=== PATIENT | female | born 1990 | race Caucasian/White ===

== ENCOUNTER 2024-09-25 14:13 | Outpatient (RCR) | payer OTHER, SELFPAY ==
--- NOTE | 2024-08-30 09:19 | MHC.PT.EP ---
[facility] [place] Office [place] [facility] [place] Office [address] [place] Carrillo [address] [phone] F: [phone] F: [phone] F: [phone] F: [phone] Physical Therapy Plan of Care Date of Evaluation: 08/30/24 Date of Surgery: NA Diagnosis: CIDP- walking and balance Assessment: Jo is a 33 year old female who is referred to PT for CIDP- walking and balance issues . She reports of being diagnosed with GBS and was acute setting for 4 months. She was in [place] at this time. She then had outpatient PT for 1 month only due to insurance limitations. She moved to [place] about 1 year back and would like to resume rehab. On PT examination she presents with constant pain for about 6/10 pain in B feet and radiating to R knee, B LE gross ROM WNL, decreased strength in B LE and core, impaired gait, and impaired balance. She lives with her best friend. She has days with increased pain and weakness resulting in using wheel chair to move around and needing more assistance with ADLS and has days when she walks independently and is independent with ADLS. 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 She would benefit from skilled PT to address the aforementioned impairments and improve tolerance to functional activities. Frequency and Duration: The patient will be seen 2/week for 6 weeks Short Term Goals: 1. Pt will demonstrate initiation of HEP in 2 weeks 2. Pt will demonstrate an increase in muscle strength by 1grade in B LE which will enable her to negotiate stairs and walk without needing to use wheel chair on her bad days in 4 weeks Halfway Goals: 1. Pt will demonstrate no LOB on uneven surfaces in 6 weeks 2. Pt will be independent with all HEP for symptom management and maintenance following d/c in 6 weeks Treatment Plan: Modalities to reduce pain, spasms and effusion. Manual therapy to restore motion and function. Therapeutic exercise to improve strength and flexibility. Neuromuscular re-education for posture and balance. Therapeutic activities to return to functional activities of daily living. Electronically signed by: Candida Oquendo PT DPT Please sign and return to therapist. Thank you for your referral.
--- NOTE | 2024-10-09 13:28 | MHC.PT.DC ---
[facility] [place] Office [place] Office [place] Office [address] [phone] F: [phone] F: [phone] F: [phone] F: [phone] Physical Therapy Discharge Report Diagnosis: CIDP- walking and balance Date of Surgery: NA Date of Evaluation: 08/30/24 Date of Discharge: 10/09/24 Treatments to Date: 8 Cancellations to Date: 0 No Shows to Date: 0 Discharge Status: Achieved Goals Improved Function Independent with HEP Discharge Summary: Jo arrived stating she is feeling good. She has completed 8 PT visits and has had no episodes of LOB. She has not needed to use her AD as well in a month. She is independent with all HEP as well. She is therefore being d/c from PT. Jo was in agreement with the plan. I reviewed all exercises with her. Electronically signed by: Candida Oquendo PT DPT Please sign and return to therapist. Thank you for your referral.
== END 2024-10-09 13:28 | disposition home or self-care (01) ==
LOC: HO.PT 14:13
PROVIDERS: PCP Family Medicine; Visit Provider Psychiatry & Neurology Neurology
DX: G61.81 Chronic inflammatory demyelinating polyneuritis (principal)
CPT/HCPCS: 97110; 97162; 97530

== ENCOUNTER 2025-02-07 08:26 | Outpatient (AMB) | payer OTHER, SELFPAY ==
--- OUTSIDE RECORDS SUMMARY | 2025-02-07 08:38 | XMS_ITS | Clinical Summary ---
Author Organization [address] Address [address] [place] [id number] Phone Care Team Providers Care Reed Repairer Name Role Phone Yudi Rosa MD Primary Care Pr ovider Allergies Active Allergy Reactions Criticality Noted Date Comments Cat Dander Other Low 12/22/2018 Other reaction(s): watery eyes Ceftriaxone Hives,Swelling Medium 12/30/2022 Dog Epithelium Allergenic Extract Other Low 12/22/2018 Other reaction(s): watery eyes Iodine Anaphylaxis,Hives,It stephany,Shortness of breath,Swelling,Whee zing High 06/07/2023 Other reaction(s): sob Other Other Low 04/25/2019 Shellfish Derived Swelling High 12/22/2018 Medications albuterol sulfate (ProAir RespiClick) 90 mcg/actuation aerosol powdr breath activatedIndicat ions:Mild intermittent asthma without complication Inhale 2 puffs by mouth every 6 (six) hours if needed (wheezing). Inhale 2 Puffs into the lungs every 6 hours as needed.Inhale 2 Puffs into the lungs every 6 hours as needed. 1 each 5 03/19/20 25 Active DULoxetine (CYMBALTA) [address] Jessica ns:Chronic pain syndrome,History of Guillain-Creighton syndrome Take 1 capsule (30 mg total) by mouth 2 (two) times a day. Do not crush or chew. 180 each 5 03/19/20 25 Active EPINEPHrine (EpiPen 2-Pancho) 0.3 mg/0.3 mL injectionIndicat ions:Multiple drug allergies Inject 0.3 mL (0.3 mg total) into the thigh 1 (one) time for 1 dose. 1 each 5 Active fluticasone furoate (Arnuity Ellipta) 100 mcg/actuation blister with device inhalerIndicatio ns:Mild intermittent asthma without complication Inhale 1 puff by mouth 1 (one) time each day. Inhale 1 Puff into the lungs daily. 1 each 5 Active propranoloL (INDERAL) 10 mg tabletIndication s:Generalized anxiety disorder Take 1 tablet (10 mg total) by mouth 2 (two) times a day if needed (anxiety). TAKE 1 TABLET BY MOUTH 2 TIMES DAILY NEEDED (ANXIETY) FOR UP TO 360 DAYS. 180 tablet 1 5 Active Additional Information Patient not taking.Reported on 01/23/2025 SUMAtriptan (IMITREX) 50 mg tabletIndication s:Migraine without aura and without status migrainosus, not intractable Take 1 tablet (50 mg total) by mouth 1 (one) time if needed for migraine. May repeat dose once in 2 hours if no relief. Do not exceed 2 doses in 24 hours. 10 tablet 1 5 Active gabapentin (NEURONTIN) 800 mg tabletIndication s:History of Guillain-Creighton syndrome Take 1 tablet (800 mg total) by mouth 2 (two) times a day. 5 Active predniSONE (DELTASONE) 20 mg tabletIndication s:History of Guillain-Creighton syndrome Take 1 tablet (20 mg total) by mouth 1 (one) time each day. 5 Active escitalopram (LEXAPRO) 20 mg tabletIndication s:Generalized anxiety disorder,Mild depression Take 1 tablet (20 mg total) by mouth 1 (one) time each day. 90 each 1 5 03/19/20 25 Active montelukast (SINGULAIR) 10 mg tabletIndication s:Allergic rhinitis, unspecified seasonality, unspecified trigger Take 1 tablet (10 mg total) by mouth at bedtime. 90 each 1 5 03/19/20 25 Active diphenhydrAMINE (BENADRYL) 50 mg tabletIndication s:Allergic rhinitis, unspecified seasonality, unspecified trigger Take 1 tablet (50 mg total) by mouth at bedtime as needed for itching. 30 tablet 5 Active magnesium oxide 250 mg magnesium tablet TAKE 1 TABLET BY MOUTH EVERY DAY 90 tablet 1 5 Active omeprazole (PriLOSEC) [address] capsule Take 1 capsule (20 mg total) by mouth 1 (one) time each day. Do not crush or chew. 90 each 5 04/30/20 25 Active Active Problems Problem Noted Date Diagnosed Date Mild depression 2024 Assessment & Plan (2024 9:50 AM EST): Start Lexapro 20 mg daily Orders: escitalopram (LEXAPRO) 20 mg tablet; Take 1 tablet (20 mg total) by mouth 1 (one) time each day. Multiple drug allergies 2024 Assessment & Plan (2024 9:50 AM EST): Use EpiPen as needed for anaphylaxis Orders: EPINEPHrine (EpiPen 2-Pancho) 0.3 mg/0.3 mL injection; Inject 0.3 mL (0.3 mg total) into the thigh 1 (one) time for 1 dose. History of Guillain-Creighton syndrome 2024 Assessment & Plan (2024 9:50 AM EST): Continue duloxetine and gabapentin 800 mg twice daily. Also prescribed prednisone 20 mg daily by her neurologist-Dr. Sher Orders: DULoxetine (CYMBALTA) [address] capsule; Take 1 capsule (30 mg total) by mouth 2 (two) times a day. Do not crush or chew. Hypomagnesemia 2024 Assessment & Plan (2024 9:50 AM EST): Continue magnesium 300 mg daily B12 deficiency 2024 Assessment & Plan (2024 9:50 AM EST): Continue daily multivitamin. Will update B12 level Orders: Vitamin B12; Future Cholelithiases 03/30/2024 Chronic pain syndrome 03/15/2024 Assessment & Plan (2024 9:50 AM EST): Continue duloxetine and gabapentin 800 mg twice daily. Also prescribed prednisone 20 mg daily by her neurologist-Dr. Sher Orders: DULoxetine (CYMBALTA) [address] capsule; Take 1 capsule (30 mg total) by mouth 2 (two) times a day. Do not crush or chew. Migraine without aura and wi thout status migrainosus, not intractable 03/15/2024 Assessment & Plan (2024 9:50 AM EST): Continue sumatriptan and Toradol as needed Orders: SUMAtriptan (IMITREX) 50 mg tablet; Take 1 tablet (50 mg total) by mouth 1 (one) time if needed for migraine. May repeat dose once in 2 hours if no relief. Do not exceed 2 doses in 24 hours. Mild intermittent asthma without complication Assessment & Plan (2024 9:50 AM EST): Advised to use the Arnuity daily for maintenance and to use albuterol as needed Orders: albuterol sulfate (ProAir RespiClick) 90 mcg/actuation aerosol powdr breath activated; Inhale 2 puffs by mouth every 6 (six) hours if needed (wheezing). Inhale 2 Puffs into the lungs every 6 hours as needed.Inhale 2 Puffs into the lungs every 6 hours as needed. fluticasone furoate (Arnuity Ellipta) 100 mcg/actuation blister with device inhaler; Inhale 1 puff by mouth 1 (one) time each day. Inhale 1 Puff into the lungs daily. Impaired gait and mobility 03/15/2024 Fatty liver disease, nonalcoholic 03/15/2024 Esophageal stricture 03/15/2024 Assessment & Plan (2024 9:50 AM EST): See HPI. Referred to GI Orders: Ambulatory referral to Gastroenterology; Future Generalized anxiety disorder 07/10/2022 Assessment & Plan (2024 9:50 AM EST): Will increase Lexapro to 20 mg daily for better control of mood symptoms Orders: propranoloL (INDERAL) 10 mg tablet; Take 1 tablet (10 mg total) by mouth 2 (two) times a day if needed (anxiety). TAKE 1 TABLET BY MOUTH 2 TIMES DAILY NEEDED (ANXIETY) FOR UP TO 360 DAYS. escitalopram (LEXAPRO) 20 mg tablet; Take 1 tablet (20 mg total) by mouth 1 (one) time each day. Allergic rhinitis 12/22/2018 Assessment & Plan (2024 9:50 AM EST): Continue current meds Orders: montelukast (SINGULAIR) 10 mg tablet; Take 1 tablet (10 mg total) by mouth at bedtime. diphenhydrAMINE (BENADRYL) 50 mg tablet; Take 1 tablet (50 mg total) by mouth at bedtime as needed for itching. Attention deficit hyperactivity disorder (ADHD) 07/01/2006 Encounters Date Type Department Care Team Description 01/30/2025 2:54 PM EDT Anesthesia Event [facility] Endoscopy [address] [place] [phone] Olivia Major MD 01/30/2025 12:54 PM EDT - 01/30/2025 11:59 PM EDT Hospital Encounter [facility] Endoscopy [address] [place] [address] Roberto Mclain MD Freeman, Katharine O, MD Hayes, Brett L, CRNA Dysphagia Discharge Disposition: Home or Self Care 12/14/2024 8:30 AM EDT - 12/14/2024 11:59 PM EDT Hospital Encounter [facility] Xray [address] [place] [address] Esophageal stricture; Dysphagia, unspecified type; H/O Guillain-Creighton syndrome; CIDP (chronic inflammatory demyelinating polyneuropathy) (CMS/[facility] V24, CMS/[facility] V28) Discharge Disposition: Home or Self Care 11/16/2024 Telephone Adult [address] [phone] Yudi Rosa MD Forms/questionnaires from Last 3 Months Immunizations Name Administration Dates Next Due Influenza Quadrivalent, 0.5m l, preservative free (Fluarix; FluLaval; Fluzone) ages 6mo and older (Afluria) 3yo and older 05/30/2019 Influenza trivalent, 0.5mL, preservative free (Fluarix; FluLaval; Fluzone) ages 6mo and older (Afluria) 3 years and older 07/01/2006 Td Tetanus diptheria (Tdvax) 7yo and older 04/16 Tdap Tetanus diptheria acell ular pertussis (Boostrix; Adacel) 7yo and older 2024 Surgical History Surgery Date Site/Laterality Comments OTHER SURGICAL HISTORY 2021 PROCEDURE: SURGICAL OPENING OF ESOPHAGUS BARIATRIC SURGERY 12/2021 PROCEDURE: [place] LAPS GSTRC RSTRICTIV PX LONGITUDINAL GASTRECTOMY OTHER SURGICAL HISTORY 03/2022 PROCEDURE: [place] INJECTION EPIDURAL BLOOD/CLOT PATCH; COMMENT: spinal Medical History Medical History Date Comments Varicella without mention of complication DX:Varicella without mention of complication Hearing loss 07/01/2006 DX:Hearing loss; COMMENT: IMO update Adhd CRISPIN (generalized anxiety disorder) Chronic pain syndrome Migraines Asthma Depression Fatty liver Esophageal stricture Cholelithiasis Guillain Barraza syndrome (CMS/HCC V24) Vitamin B 12 deficiency Hypomagnesemia Family History Medical History Relation Name Comments Cervical cancer Mother late 30s Breast cancer Other Colon cancer Neg Hx Ovarian cancer Neg Hx Relation Name Status Comments Father Alive Mother Alive Other maternal great grandmother Social History Tobacco Use Types Packs/Day Years Used Date Smoking Tobacco: Never Smokeless Tobacco: Never Tobacco Cessation:Counseling Given: Not Answered Alcohol Use Standard Drinks/Week Comments Not Currently 0 (1 standard drink = 0.6 oz pur e alcohol) Housing Instability Answer Date Recorde d Are you worried that in the next 2 months you may not have stable housing? No 09/19/2024 Food Access & Nutrition Answer Date Rec orded Do you have access to a vari ety of food including fruits and vegetables? Yes 09/19/2024 Health Literacy Answer Date Recorded How often do you need to hav e someone help you when you read instructions, pamphlets, or other written material from your doctor or pharmacy? Always 09/19/2024 Caregiver: How often do you need to have someone help you when you read instructions, pamphlets, or other written material from your doctor or pharmacy? Not on file 09/19/2024 Financial Risk Answer Date Recorded How hard is it for you to pa y for the very basics like food, housing, medical care, and air conditioning / heating? Not asked 09/19/2024 Transportation Answer Date Recorded Has the lack of transportati on kept you from meetings, work, or from getting things needed for daily living? No Has the lack of transportati on kept you from medical appointments or from getting medications? No 09/19/2024 Social Isolation Answer Date Recorded How often do you feel lonely or isolated from th ose around you? Never 09/19/2024 Food Risk Answer Date Recorded Within the past 12 months we worried whether our food would run out before we got money to buy more. Not asked 09/19/2024 Within the past 12 months th e food we bought just didn't last and we didn't have money to get more. Not asked 09/19/2024 Dependent Care Answer Date Recorded Do you need help finding or paying for care for your loved ones. For example, children's lunchroom supervisor or elderly care for an older adult? No 09/19/2024 Education Answer Date Recorded Do you think completing more education or training, like finishing a GED, going to college, or learning a trade, would be helpful for you? Yes 09/19/2024 Employment and Income Answer Date Recor ded During the last four weeks, have you been actively looking for work? Yes 09/19/2024 Living Situation Answer Date Recorded What is your living situation? 0 09/19/2024 Interpersonal Safety Answer Date Record ed Physical Abuse 01/30/2025 Verbal Abuse 01/30/2025 Comments No Sex and Gender Information Value Date Recorded Sex Assigned at Female 10/19/2024 3:06 PM EDT Legal Sex Female 11:41 AM EDT Gender Identity Female 10/19/2024 3:06 PM EDT Sexual Orientation Lesbian or Davis 10/19/2024 3: 06 PM EDT Obstetrics History Last Filed Vital Signs Vital Sign Reading Time Taken Comments Blood Pressure 107/82 01/30/2025 3:29 PM EDT Pulse 77 01/30/2025 3:29 PM EDT Temperature 36.3 C (97.3 F) 01/30/2025 2:41 PM EDT Respiratory Rate 20 01/30/2025 3:29 PM EDT Oxygen Saturation 99% 01/30/2025 3:29 PM EDT Inhaled Oxygen Concentration - - Weight 61.7 kg (136 lb) 01/30/2025 2:41 PM EDT Height 162.6 cm (5' 4 ) 01/30/2025 2:41 PM EDT Body Mass Index 23.34 01/30/2025 2:41 PM EDT Plan of Treatment Upcoming Encounters Date Type Department Care Team (Late st Contact Info) Description 03/27/2025 10:00 AM EDT Office Visit Adult Medicine [address] [phone] Amparo Adhikari PA [address] [place] [address] Health Maintenance Due Date Last Done Comments Pneumococcal Vaccine: Pediatrics (0 to 5 Years) and At-Risk Patients (6 to 49 Years) (1 of 2 - PCV) 2010 Cervical Cancer Screening: Pap Smear 2012 HIV Screening 05/11/2024 Hepatitis C Screening 05/11/2024 Depression Screening 09/19/2025 09/19/2024, 03/15/2024 Social Influencers of Health Screening 09/19/2025 09/19/2024 Cholesterol Screening (Lipid Panel) 03/30/2029 03/30/2024, 03/30/2024 DTaP,Tdap,and Td Vaccines (3 - Td or Tdap) 2034 2024, 04/16/2005 Influenza Vaccine Discontinued 05/30/2019, 07/01/2006 COVID-19 Vaccine Discontinued HIB Vaccines Aged Out No longer eligi ble based on patient's age to complete this topic HPV Vaccines Aged Out No longer eligi ble based on patient's age to complete this topic Hepatitis A Vaccines Discontinued Hepatitis B Vaccines Discontinued IPV Vaccines Aged Out No longer eligi ble based on patient's age to complete this topic MMR Vaccines Aged Out No longer eligi ble based on patient's age to complete this topic Meningococcal ACWY Vaccine Aged Out N o longer eligible based on patient's age to complete this topic Meningococcal B Vaccine Aged Out No l onger eligible based on patient's age to complete this topic RSV Immunization Patients Under 20 months Aged Out No longer eligible based on patient's age to complete this topic Varicella Vaccines Aged Out No longer eligible based on patient's age to complete this topic Procedures Procedure Name Priority Date/Time Associated Diagnosis Comments EGD Routine 01/30/2025 3:07 PM EDT Dysphagia XR ESOPHAGRAM STAT 12/14/2024 9:01 AM EDT Esophageal stricture Dysphagia, unspecified type H/O Guillain-Creighton syndrome CIDP (chronic inflammatory demyelinating polyneuropathy) ([facility] V24, [facility] V28) LIPID PANEL Routine 03/30/2024 HM DEPRESSION SCREENING Routine 03/15/2024 from Last 3 Months or Most Recently Relevant to Health Maintenance Results * EGD Dilation; Anesthesia - MAC; [facility] ENDOSCOPY (01/30/2025 3:07 PM EDT) Anatomical Region Laterality Modality Endoscopy 01/30/2025 2:56 PM EDT Impressions 01/30/2025 3:10 PM EDT - Normal examined duodenum. - A sleeve gastrectomy was found, characterized by healthy appearing mucosa. - GERD, as evident by free flow of gastric contents into the esophagus. - No specimens collected. Recommendation: - Discharge patient to home. - Use a proton pump inhibitor PO daily for 2 months. - Perform a video esophagram if symptoms persist. Narrative 01/30/2025 3:10 PM EDT [facility] GI Patient Name: Megan Norris Procedure Date: 01/30/2025 2:56 PM Date of : 1990 Age: 34 Gender: Female Note Status: Finalized Attending MD: Roberto Mclain MD, Procedure Date No Time: 01/30/2025 Procedure: Upper GI endoscopy Indications: Dysphagia Providers: Roberto Mclain MD Referring MD: Roberto Mclain MD Medicines: Monitored Anesthesia Care Complications: No immediate complications. Estimated blood loss: None. Estimated Blood Loss: Estimated blood loss: none. Procedure: Pre-Anesthesia Assessment: - Prior to the procedure, a History and Physical was performed, and patient medications and allergies were reviewed. The patient is competent. The risks and benefits of the procedure and the sedation options and risks were discussed with the patient. All questions were answered and informed consent was obtained. Patient identification and proposed procedure were verified by the physician, the nurse, the respiratory technician and the dental lab technician in the pre-procedure area in the endoscopy suite. Mental Status Examination: alert and oriented. Airway Examination: normal oropharyngeal airway and neck mobility. Respiratory Examination: clear to auscultation. CV Examination: normal. Prophylactic Antibiotics: The patient does not require prophylactic antibiotics. Prior Anticoagulants: The patient has taken no anticoagulant or antiplatelet agents. ASA Grade Assessment: II - A patient with mild systemic disease. After reviewing the risks and benefits, the patient was deemed in satisfactory condition to undergo the procedure. The anesthesia plan was to use monitored anesthesia care (MAC). Immediately prior to administration of medications, the patient was re-assessed for adequacy to receive sedatives. The heart rate, respiratory rate, oxygen saturations, blood pressure, adequacy of pulmonary ventilation, and response to care were monitored throughout the procedure. The physical status of the patient was re-assessed after the procedure. After obtaining informed consent, the endoscope was passed under direct vision. Throughout the procedure, the patient's blood pressure, pulse, and oxygen saturations were monitored continuously. The Endoscope was introduced through the mouth, and advanced to the second part of duodenum. The upper GI endoscopy was accomplished without difficulty. The patient tolerated the procedure well. Findings: The examined duodenum was normal. Evidence of a sleeve gastrectomy was found in the stomach. This was characterized by healthy appearing mucosa. There is no endoscopic evidence of bleeding, esophagitis, stenosis or stricture in the entire esophagus. A guidewire was placed and the scope was withdrawn. Dilation was performed with a Savary dilator with mild resistance at 60 Fr. Gastroesophageal reflux is evident by free flow of gastric contents in the lower third of the esophagus. No other significant abnormalities were identified in a careful examination of the esophagus. Procedure Code(s): --- Professional --- 14341, Esophagogastroduodenoscopy, flexible, transoral; with insertion of guide wire followed by passage of dilator(s) through esophagus over guide wire Diagnosis Code(s): --- Professional --- Z98.84, Bariatric surgery status R13.10, Dysphagia, unspecified K21.9, Gastro-esophageal reflux disease without esophagitis CPT copyright 2020 [employer]. All rights reserved. The codes documented in this report are preliminary and upon u.s. commissioner review may be revised to meet current compliance requirements. Roberto Mclain MD 01/30/2025 3:10:18 PM This report has been signed electronically.Roberto Mclain MD Number of Addenda: 0 Note Initiated On: 01/30/2025 2:56 PM Scope In: Scope Out: Endoscopy Department at [facility] - [address] [place] [id number] Procedure Note Roberto Mclain MD - 01/30/2025 [facility] GI Patient Name: Megan Norris Procedure Date: 01/30/2025 2:56 PM Date of : 1990 Age: 34 Gender: Female Note Status: Finalized Attending MD: Roberto Mclain MD, Procedure Date No Time: 01/30/2025 Procedure: Upper GI endoscopy Indications: Dysphagia Providers: Roberto Mclain MD Referring MD: Roberto Mclain MD Medicines: Monitored Anesthesia Care Complications: No immediate complications. Estimated blood loss:None. Estimated Blood Loss: Estimated blood loss: none. Procedure: Pre-Anesthesia Assessment: - Prior to the procedure, a History and Physicalwas performed, and patient medications and allergieswere reviewed. The patient is competent. The risks and benefits of the procedure and the sedation optionsand risks were discussed with the patient. Allquestions were answered and informed consent was obtained. Patient identification and proposed procedure were verified by the physician, the nurse, theanesthetist and the dental lab technician in the pre-procedure area in the endoscopy suite. Mental Status Examination: alertand oriented. Airway Examination: normal oropharyngeal airway and neck mobility. Respiratory Examination: clear to auscultation. CV Examination: normal. Prophylactic Antibiotics: The patient does notrequire prophylactic antibiotics. Prior Anticoagulants: The patient has taken no anticoagulant or antiplatelet agents. ASA Grade Assessment: II - A patient withmild systemic disease. After reviewing the risks and benefits, the patient was deemed in satisfactory condition to undergo the procedure. The anesthesia plan was to use monitored anesthesia care (MAC). Immediately prior to administration of medications, the patient was re-assessed for adequacy to receive sedatives. The heart rate, respiratory rate, oxygen saturations, blood pressure, adequacy of pulmonary ventilation, and response to care were monitored throughout the procedure. The physical status ofthe patient was re-assessed after the procedure. After obtaining informed consent, the endoscope was passed under direct vision. Throughout theprocedure, the patient's blood pressure, pulse, and oxygen saturations were monitored continuously. TheEndoscope was introduced through the mouth, and advanced tothe second part of duodenum. The upper GI endoscopy was accomplished without difficulty. The patienttolerated the procedure well. Findings: The examined duodenum was normal. Evidence of a sleeve gastrectomy was found in the stomach. This was characterized by healthyappearing mucosa. There is no endoscopic evidence of bleeding, esophagitis, stenosis or stricture in the entire esophagus. A guidewire was placed and the scope was withdrawn. Dilation was performed with a Savary dilator with mild resistance at 60 Fr. Gastroesophageal reflux is evident by free flow of gastric contents in the lower third of theesophagus. No other significant abnormalities were identifiedin a careful examination of the esophagus. Procedure Code(s): --- Professional --- 53687, Esophagogastroduodenoscopy, flexible, transoral; with insertion of guide wire followed by passage of dilator(s) through esophagus over guidewire Diagnosis Code(s): --- Professional --- Z98.84, Bariatric surgery status R13.10, Dysphagia, unspecified K21.9, Gastro-esophageal reflux disease without esophagitis CPT copyright 2020 [employer]. All rights reserved. The codes documented in this report are preliminary and upon u.s. commissioner reviewmay be revised to meet current compliance requirements. Roberto Mclain MD 01/30/2025 3:10:18 PM This report has been signed electronically.Roberto Mclain MD Number of Addenda: 0 Note Initiated On: 01/30/2025 2:56 PM Scope In: Scope Out: Endoscopy Department at [facility] - [address] [place] [id number] IMPRESSION: - Normal examined duodenum. - A sleeve gastrectomy was found, characterized by healthy appearing mucosa. - GERD, as evident by free flow of gastric contents into the esophagus. - No specimens collected. Recommendation: - Discharge patient to home. - Use a proton pump inhibitor PO daily for 2months. - Perform a video esophagram if symptoms persist. us Roberto Mclain MD GI~PROCEDURE ORDERABLES Fin al Result * XR Esophagram (12/14/2024 9:01 AM EDT) Anatomical Region Laterality Modality Head and Neck Radiographic Alison ging 12/14/2024 9:17 AM EDT Impressions 12/14/2024 9:45 AM EDT 1. Feline esophagus. This is a transient phenomenon highly associated with gastroesophageal reflux and does not require follow-up. 2. Small, axial, sliding hiatal hernia without visualized gastroesophageal reflux. -------- FINAL REPORT -------- Dictated By: Lois Downey Dictated Date: 12/14/2024 09:17 ET Assigned Physician: Tolu Edward Reviewed and Electronically Signed By: Tolu Edward Signed Date: 12/14/2024 09:45 ET Workstation ID: [id number] Transcribed By: Self Edit Transcribed Date: 12/14/2024 09:24 ET Resident/PA/MANAGER CARE: Lois Downey Narrative 12/14/2024 9:45 AM EDT FINDINGS: Double contrast esophagram performed. COMPARISON: None HISTORY: Patient is a 34-year-old female with history of complications related to intubation. History of gastric sleeve. Dysphagia. Painter Barrel radiographs: 1 view chest radiograph demonstrates cardiac and mediastinal contours within normal limits. Lungs are clear bilaterally. Costophrenic angles are sharp. Multiple surgical clips are noted to the left upper quadrant, consistent with history of gastric surgery surgery. 1 view lateral soft tissue neck demonstrates no prevertebral soft tissue masses. Airway is widely patent. There is loss of cervical lordosis. Effervescent crystals were administered orally. Thick and thin barium were administered orally under fluoroscopic control. Pharyngoesophagram: Rapid sequence imaging of the hypopharynx during swallowing demonstrates prompt initiation of swallowing. There is normal soft palate elevation and normal epiglottic motion. There is no laryngeal penetration or tita aspiration. There is no residual in the vallecula nor in the piriform sinuses. Thoracic esophagus: Normal distensibility, motility and mucosal pattern without evidence of ulceration, stricture or mass formation. Transiently visualized horizontal ridges along the mid esophagus, consistent with esophageal shiver/feline esophagus. Hiatal hernia: Small, axial, sliding hiatal hernia. Limited visualized portion of the stomach demonstrates history of gastric sleeve. Reflux: Unable to elicit 13mm Barium pill: Swallowed without difficulty. Prompt passage of pill from the esophagus into the stomach. DAP: 289.1 Gycm^2 Procedure Note Tolu Edward MD - 12/14/2024 FINDINGS: Double contrast esophagram performed. COMPARISON: None HISTORY: Patient is a 34-year-old female with history of complicationsrelated to intubation. History of gastric sleeve. Dysphagia. Painter Barrel radiographs: 1 view chest radiograph demonstrates cardiac andmediastinal contours within normal limits. Lungs are clear bilaterally.Costophrenic angles are sharp. Multiple surgical clips are noted to theleft upper quadrant, consistent with history of gastric surgery surgery. 1view lateral soft tissue neck demonstrates no prevertebral soft tissuemasses. Airway is widely patent. There is loss of cervical lordosis. Effervescent crystals were administered orally. Thick and thin barium wereadministered orally under fluoroscopic control. Pharyngoesophagram: Rapid sequence imaging of the hypopharynx duringswallowing demonstrates prompt initiation of swallowing. There is normalsoft palate elevation and normal epiglottic motion. There is no laryngealpenetration or tita aspiration. There is no residual in the vallecula norin the piriform sinuses. Thoracic esophagus: Normal distensibility, motility and mucosal patternwithout evidence of ulceration, stricture or mass formation. Transientlyvisualized horizontal ridges along the mid esophagus, consistent withesophageal shiver/feline esophagus. Hiatal hernia: Small, axial, sliding hiatal hernia. Limited visualizedportion of the stomach demonstrates history of gastric sleeve. Reflux: Unable to elicit 13mm Barium pill: Swallowed without difficulty. Prompt passage of pillfrom the esophagus into the stomach. 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 2. Small, axial, sliding hiatal hernia without visualized gastroesophagealreflux. -------- FINAL REPORT -------- Dictated By: Lois Downey Dictated Date: 12/14/2024 09:17 ET Assigned Physician: Tolu Edward Reviewed and Electronically Signed By: Tolu Edward Signed Date: 12/14/2024 09:45 ET Workstation ID: [id number] Transcribed By: Self Edit Transcribed Date: 12/14/2024 09:24 ET Resident/PA/MANAGER CARE: Lois Downey Ivan GIPSON IMG FLUOROSCOPY PROCEDURES Prisca l Result * Lipid panel (03/30/2024) LDL/HDL Ratio 3 0 - 4 Triglycerides 50 0 - 150 mg/dL Cholesterol 138 0 - 200 mg/dL HDL 56 >=40 mg/dL LDL Cholesterol 72 0 - 100 mg/dL Blood Venous blood specimen / Unknown Result [facility] Historical Provider LAB BLOOD ORDERABLES Prisca l Result * Depression Screening (03/15/2024) Depression Screening Abstracted Historical Provider HEALTH MAINTENANCE Final Result from Last 3 Months or Most Recently Relevant to Health Maintenance Insurance [facility] [place] [address] Care Teams Reed Repairer Relationship Specialty Start Date End Date Yudi Rosa MD [address] [place] [address] [phone] PCP - General Internal Medicine 06/06/24
--- OUTSIDE RECORDS SUMMARY | 2025-02-07 08:38 | XMS_ITS | Clinical Summary ---
Author Organization [facility] Address [address] [place] [address] Care Team Providers Care Supervisor Shuttle Fitting Name Role Phone Unavailable Primary Care Provider Unavailabl e Source Comments PLEASE NOTE, if this patient is a minor, it may be UNLAWFUL to discuss sensitive information that is contained in these records (such as FAMILY PLANNING, MENTAL HEALTH or SUBSTANCE ABUSE) with the minor patient's parent or other person without the patient's specific authorization.[facility] Allergies Active Allergy Reactions Criticality Noted Date Comments Ceftriaxone Hives 05/10/2024 Medications ibuprofen 600 mg tabletIndication s:Caries Take 1 Tablet by mouth 4 (four) times daily as needed for mild pain 20 Tablet 05/10/2024 Active Active Problems No known active problems Social History Tobacco Use Types Packs/Day Years Used Date Smoking Tobacco: Never Assessed Social Connections Answer Date Recorded Connectedness 0 04/18/2024 Financial Resource Strain Answer Date R ecorded Financial Resource Strain 0 2023 Stress Answer Date Recorded Stress 0 03/09/2024 Physical Activity Answer Date Recorded Physical Activity 0 03/09/2024 Food Insecurity Answer Date Recorded Food 0 04/27/2024 Transportation Needs Answer Date Record ed Transportation 0 03/09/2024 Housing Stability Answer Date Recorded Housing 0 03/09/2024 Safety and Environment Answer Date King rded Safety 0 03/09/2024 Utilities Answer Date Recorded Utilities 0 03/09/2024 Employment Answer Date Recorded Stress 0 04/18/2024 Comments Unknown Sex and Gender Information Value Date Recorded Sex Assigned at Not on file Legal Sex Female 1:11 PM PDT Gender Identity Not on file Sexual Orientation Not on file Last Filed Vital Signs Vital Sign Reading Time Taken Comments Blood Pressure 106/72 06/08/2024 12:59 PM EST Pulse 82 06/08/2024 12:59 PM EST Temperature - - Respiratory Rate - - Oxygen Saturation - - Inhaled Oxygen Concentration - - Weight - - Height - - Body Mass Index - - Plan of Treatment Health Maintenance Due Date Last Done Comments Anxiety Screening 1991 HPV Screening 1991 Hepatitis C Screening 1991 Pap + HPV 1991 Tobacco Screening 1991 Imm-DTaP/Tdap/Td (2 - Tdap) 04/17/2005 04/16/2005 HIV Screening 2006 Relationship Safety Screening/Counseling 2006 Imm-Hepatitis B (1 of 3 - 19 + 3-dose series) 2010 Cervical Cancer Screening 2012 Pap Smear 2012 [id number] (2023-) 04/02/2024 Alcohol and Drug Screen 08/02/2024 Depression Annual Screen 08/02/2024 Imm-Influenza (#1) 2025 05/30/2019, 07/01/2006 Dental BW 05/11/2025 05/09/2024 Dental Examination 05/11/2025 05/09/2024 Dental Perio Charting 05/11/2025 05/09/2024 Dental Prophy 05/11/2025 05/09/2024 Hypertension Screening (#1) 06/08/2027 Dental FMX/Pano 05/12/2029 05/10/2024, 05/09/2024 Cervical Ablation/Cold-Knife Conization Discontinued Cervical Cryotherapy Discontinued Colposcopy Discontinued Endometrial Biopsy Discontinued Excision/Leep Discontinued HPV Genotyping Discontinued Vaginal Pap Discontinued Vulvoscopy Discontinued Procedures Procedure Name Priority Date/Time Associated Diagnosis Comments PANORAMIC RADIOGRAPHIC IMAGE Routine 05/10/2024 3:00 PM EDT Caries Retained tooth root INTRAORAL - COMP SERIES OF RADIOGRAPHIC IMAGES Routine 05/09/2024 2:20 PM EDT Retained tooth root Caries of enamel (incipient) Defective dental latter day Caries PROPHYLAXIS - ADULT Routine 05/09/2024 2 :20 PM EDT Retained tooth root Caries Caries of enamel (incipient) Defective dental latter day COMP ORAL EVALUATION - NEW/ESTABLISHED PATIENT Routine 05/09/2024 2:20 PM EDT Retained tooth root Caries Caries of enamel (incipient) Defective dental latter day from Last 3 Months or Most Recently Relevant to Health Maintenance Insurance [place]
--- NOTE | 2025-02-07 09:35 | MHC.OFFVIS ---
Intake Visit Reasons: 3 month f/u [facility]ies [facility] Allergy (Verified 02/06/25 11:51) Unknown iodine Allergy (Verified 02/06/25 11:51) Unknown Medication List - Last Reconciled 02/07/25 by Willi Sher MD albuterol sulfate 90 mcg/actuation (ProAir RespiClick) 2 inhalations inhalation Q6H PRN duloxetine 30 mg PO BID gabapentin 800 mg PO TID ketorolac 10 mg PO Q6H PRN omeprazole 20 mg PO DAILY prednisone 20 mg PO BID sumatriptan succinate mg PO HPI Comments Details: 34 years old woman with chronic inflammatory demyelinating polyneuropathy, and migraine without aura type of headaches. 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 Previously she has been treated with IVIG. She said that she was not consistently taking prednisone and now was taking about once a week. She was taking duloxetine and gabapentin. Overall she was feeling better. No new symptoms. [facility] Medical History (Updated 02/07/25 @ 09:38 by Willi Sher MD) Guillain-Coulters syndrome CIDP (chronic inflammatory demyelinating polyneuropathy) Paresthesia of skin Migraine without aura Review of Systems Const Details: Constitutional:?No fever, chills, fatigue, weight loss, or night sweats. HEENT:?No headache, vision changes, hearing loss, nasal congestion, sore throat. Neurological:?No dizziness, syncope, seizures, numbness, tingling, weakness, tremors, memory loss. Psychiatric:?No anxiety, depression, mood swings, sleep disturbance, or hallucinations. Endocrine:?No heat/cold intolerance, polydipsia, polyuria, or hair/skin changes. Hematologic/Lymphatic:?No easy bruising, bleeding, or lymphadenopathy. Integumentary (Skin):?No rash, lesions, itching, or color changes. ? Physical Exam Neuro Other: Mental Status: Alert and oriented to person, place, and time. Normal attention. Normal spontaneous speech, fluency, and comprehension. No obvious issues with mood and memory. Affect is appropriate. Cranial Nerves: CN II: Visual anaya full to confrontation, visual acuity intact. CN III, IV, : Pupils equal, round, reactive to light and accommodation. Extraocular movements are normal. CN V: Facial sensation is normal. CN VII: Facial movements symmetrical. CN VIII: Hearing intact to bedside conversation is normal. CN IX, X: Palate elevates symmetrically. CN XI: Shoulder shrug and head turn symmetrical. CN XII: Tongue midline without atrophy or fasciculations. Motor: Bulk and tone normal in all extremities. No significant muscle weakness in arms and legs. No drift. Reflexes: Deep tendon reflexes 2+ and symmetric. Plantar response down-going bilaterally. Coordination: Gpffmr-it-qoxj and gbnv-el-bopi testing normal. No dysmetria. Gait and Station: No obvious gait abnormality. No ataxia or instability. Sensory: Intact to light touch, pinprick, and vibration. Romberg is negative. Extrapyramidal: Full facial expressions and blinking. No rigidity. Movements are appropriate with no tremor or abnormality. Speech: Normal; no dysarthria or tremor. Assessment & Plan Assessment & Plan (1) CIDP (chronic inflammatory demyelinating polyneuropathy): Comment: NCV/EMG LE (in office) Mild sensory and motor peripheral neuropathy with features of demyelination and axonal loss. Bilateral mid and lower lumbar radiculopathy. Code(s): G61.81 - Chronic inflammatory demyelinating polyneuritis Category: Medical (2) Migraine without aura: Code(s): G43.009 - Migraine without aura, not intractable, without status migrainosus Category: Medical Qualifiers: Status migrainosus presence: without status migrainosus Intractability: not intractable Qualified Code(s): G43.009 - Migraine without aura, not intractable, without status migrainosus Plan Impression: 1. CIDP, significantly improved 2. Migraine without aura, not having too many headaches at this time Recommendations: 1. Decreased prednisone dose to 2.5 mg a day 2. Duloxetine 30 mg twice a day 3. Decreased gabapentin dose to 800 mg twice a day 4. My plan is to slowly decrease prednisone to minimally effective dose or completely eliminate it 5. Dose of duloxetine and gabapentin might also decreased 6. Continue to be active especially walking on regular basis Medications: New prednisone 2.5 mg PO DAILY 90 tabs 0RF duloxetine 30 mg PO BID 180 caps 0RF gabapentin 800 mg PO BID 180 tabs 0RF Coding Level of Care Code Tele Est Pt Level 4 (22177) Diagnoses CIDP (chronic inflammatory demyelinating polyneuropathy) G61.81 Migraine without aura and without status migrainosus, not intractable G43.009 Status migrainosus presence: without status migrainosus Intractability: not intractable
== END 2025-02-07 09:48 | disposition home or self-care (01) ==
LOC: HO.HSM 08:26
PROVIDERS: PCP Family Medicine; Visit Provider Psychiatry & Neurology Neurology
DX: G61.81 Chronic inflammatory demyelinating polyneuritis (principal); G43.009 Migraine without aura, not intractable, without status migrainosus
CPT/HCPCS: 99214

== ENCOUNTER 2025-04-04 07:44 | Outpatient (AMB) | payer OTHER, SELFPAY ==
--- OUTSIDE RECORDS SUMMARY | 2025-04-04 07:50 | XMS_ITS | Clinical Summary ---
Author Organization [address] Address [address] [place] [phone] Phone Care Team Providers Care Senior Erp Consultant Name Role Phone Yudi Rosa MD Primary [...] 6 hours as needed. 1 each 5 Active DULoxetine (CYMBALTA) [address] capsuleIndicatio ns:Chronic pain syndrome,History of Guillain-[place] syndrome Take 1 capsule (30 mg total) by mouth 2 (two) times a day. Do not crush or chew. 180 each 5 Active EPINEPHrine (EpiPen 2-Pancho) 0.3 mg/0.3 mL [...] gabapentin (NEURONTIN) 800 mg tabletIndication s:History of Guillain-[place] syndrome Take 1 tablet (800 mg total) by mouth 2 (two) times a day. 5 Active predniSONE (DELTASONE) 20 mg tabletIndication s:History of Guillain-[place] syndrome Take 1 tablet (20 mg total) by mouth 1 (one) time each day. 5 Active escitalopram (LEXAPRO) 20 mg tabletIndication s:Generalized anxiety disorder,Mild depression Take 1 tablet (20 mg total) by mouth 1 (one) time each day. 90 each 1 5 Active montelukast (SINGULAIR) 10 mg tabletIndication s:Allergic rhinitis, unspecified seasonality, unspecified trigger Take 1 tablet (10 mg total) by mouth at bedtime. 90 each 1 5 Active diphenhydrAMINE (BENADRYL) 50 mg tabletIndication s:Allergic [...] (one) time for 1 dose. History of Guillain-[place] syndrome 2024 Assessment & Plan (2024 9:50 [...] Description 01/30/2025 2:54 PM EDT Anesthesia Event [facility] [address] [place] [phone] Olivia Major MD 01/30/2025 12:54 PM EDT - 01/30/2025 11:59 PM EDT Hospital Encounter [facility] [address] [place] [phone] Roberto Mclain MD Freeman, Katharine O, MD Hayes, Brett L, OBI Dysphagia Discharge Disposition: Home or Self Care from Last 3 Months Immunizations Name Administration [...] OPENING OF ESOPHAGUS BARIATRIC SURGERY 12/2021 PROCEDURE: MS LAPS GSTRC RSTRICTIV PX LONGITUDINAL GASTRECTOMY OTHER SURGICAL HISTORY 03/2022 PROCEDURE: MS INJECTION EPIDURAL BLOOD/CLOT PATCH; COMMENT: spinal Medical [...] care for your loved ones. For example, special needs child caregiver or elderly care for an older adult? [...] Care Team (Late st Contact Info) Description 04/25/2025 10:30 AM EDT Office Visit [facility] [address] [phone] Amparo Adhikari PA [address] [place] [address] Health Maintenance Due Date Last Done Comments Pneumococcal Vaccine: Pediatrics (0 to 5 Years) and At-Risk Patients (6 to 49 Years) (1 of 2 - PCV) 2010 Cervical Cancer Screening: Pap Smear 2012 HIV Screening 05/11/2024 Hepatitis C Screening 05/11/2024 Social Influencers of Health Screening 09/19/2025 09/19/2024 Cholesterol Screening (Lipid Panel) 03/30/2029 03/30/2024, 03/30/2024 DTaP,Tdap,and Td Vaccines (3 - Td or Tdap) 2034 2024, 04/16/2005 Influenza Vaccine Discontinued 05/30/2019, 07/01/2006 Depression Screening Completed 09/19/2024, 03/15/2024 COVID-19 Vaccine Discontinued HIB Vaccines Aged Out [...] EGD Routine 01/30/2025 3:07 PM EDT Dysphagia LIPID PANEL Routine 03/30/2024 HM DEPRESSION SCREENING Routine 03/15/2024 from Last 3 Months or Most Recently Relevant to Health Maintenance Results * EGD Dilation; Anesthesia - MAC; [facility] ENDOSCOPY (01/30/2025 [...] symptoms persist. Narrative 01/30/2025 3:[address] [facility] Patient Name: Megan Norris Procedure Date: [...] verified by the physician, the nurse, the pastoral ministries professor and the laboratory development technician in the pre-procedure area in the [...] the esophagus. Procedure Code(s): --- Professional --- 85197, Esophagogastroduodenoscopy, flexible, transoral; with insertion of guide wire followed by passage of dilator(s) through esophagus over guide wire Diagnosis Code(s): --- Professional --- Z98.84, Bariatric surgery status R13.10, Dysphagia, unspecified K21.9, Gastro-esophageal reflux disease without esophagitis CPT copyright 2020 [employer]. All rights reserved. The codes documented in this report are preliminary and upon voice network administrator review may be revised to meet current compliance requirements. Roberto Mclain MD 01/30/2025 3:10:18 PM This report has been signed electronically.Roberto Mclain MD Number of Addenda: 0 Note Initiated On: 01/30/2025 2:56 PM Scope In: Scope Out: Endoscopy Department at [facility] - [address] [place] [phone] Procedure Note Roberto Mclain MD - 01/30/2025 [facility] Patient Name: Megan Norris Procedure Date: [...] the physician, the nurse, theanesthetist and the laboratory development technician in the pre-procedure area in the [...] the esophagus. Procedure Code(s): --- Professional --- 65941, Esophagogastroduodenoscopy, flexible, transoral; with insertion of guide wire followed by passage of dilator(s) through esophagus over guidewire Diagnosis Code(s): --- Professional --- Z98.84, Bariatric surgery status R13.10, Dysphagia, unspecified K21.9, Gastro-esophageal reflux disease without esophagitis CPT copyright 2020 [employer]. All rights reserved. The codes documented in this report are preliminary and upon voice network administrator reviewmay be revised to meet current compliance requirements. Roberto Mclain MD 01/30/2025 3:10:18 PM This report has been signed electronically.Roberto Mclain MD Number of Addenda: 0 Note Initiated On: 01/30/2025 2:56 PM Scope In: Scope Out: Endoscopy Department at [facility] - [address] [place] [phone] IMPRESSION: - Normal examined duodenum. - A sleeve gastrectomy was found, characterized by healthy appearing mucosa. - GERD, as evident by free flow of gastric contents into the esophagus. - No specimens collected. Recommendation: - Discharge patient to home. - Use a proton pump inhibitor PO daily for 2months. - Perform a video esophagram if symptoms persist. Roberto Mclain MD GI~PROCEDURE ORDERABLES Fin al Result * Lipid panel (03/30/2024) LDL/HDL Ratio 3 0 - 4 Triglycerides 50 0 - 150 mg/dL Cholesterol 138 0 - 200 mg/dL HDL 56 >=40 mg/dL LDL Cholesterol 72 0 - 100 mg/dL Blood Venous blood specimen / Unknown Historical Provider LAB BLOOD ORDERABLES Prisca l Result * Depression Screening (03/15/2024) [facility] Abstracted us Historical Provider HEALTH MAINTENANCE Final Result from Last 3 Months or Most Recently Relevant to Health Maintenance Insurance [facility] [employer] Care Teams Senior Erp Consultant Relationship Specialty Start Date End Date Yudi Rosa MD [address] [place] [phone] PCP - General Internal Medicine 06/06/24
--- OUTSIDE RECORDS SUMMARY | 2025-04-04 07:50 | XMS_ITS | Clinical Summary ---
Author Organization [facility] Address [address] [place] [address] Care Team Providers Care Wool Cleaner Name Role Phone Unavailable Primary Care Provider [...] Cervical Cancer Screening 2012 Pap Smear 2012 [id number] (2023-) 04/02/2024 Alcohol and Drug Screen 08/02/2024 [...] root Caries of enamel (incipient) Defective dental scientology Caries PROPHYLAXIS - ADULT Routine 05/09/2024 2 :20 PM EDT Retained tooth root Caries Caries of enamel (incipient) Defective dental scientology COMP ORAL EVALUATION - NEW/ESTABLISHED PATIENT Routine 05/09/2024 2:20 PM EDT Retained tooth root Caries Caries of enamel (incipient) Defective dental scientology from Last 3 Months or Most Recently Relevant to Health Maintenance Insurance [place]
--- NOTE | 2025-04-04 08:03 | A.OFFVIS_ITS ---
Vital Signs 04/04/25 08:06 Weight 135 lb Intake Visit Reasons: Weakness Allergies ceftriaxone (From Rocephin) Allergy (Verified 02/06/25 11:51) Unknown iodine Allergy (Verified 02/06/25 11:51) Unknown Medication List - Last Reconciled 04/04/25 by Willi Sher MD albuterol sulfate 90 mcg/actuation (ProAir RespiClick) 2 inhalations inhalation Q6H PRN duloxetine 30 mg PO BID gabapentin 800 mg PO BID ketorolac 10 mg PO Q6H PRN omeprazole 20 mg PO DAILY prednisone 2.5 mg PO DAILY sumatriptan succinate mg PO HPI Comments Details: 34 years old woman with chronic inflammatory demyelinating polyneuropathy, and migraine without aura type of headaches. 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 Previously she has been treated with IVIG. (Initially seen in 2023: With h/o CRISPIN and migraine headaches for years, who had a gastric sleeve procedure done for weight loss in December of 2021 at [facility]. The procedure was successful and she lost weight, from 265 to 140 pounds. In March of 2022, when she was in [place] [employer], [place] she was having a bad headache. THis led to numbness in her lower extremities upto above the breast. She could not move her legs and was transported to local [facility]. There, she was seen by neurology and had scanning done that revealed spinal leak, which, according to her, was due to the C section she had in 2016. She had the blood patch. But she was also treated with plasma exchange for diagnosis of Guillian Siren syndrome.) She is presenting with numbness in the lower extremities and falls. She reports experiencing these symptoms over the past few days, which includes episodes of falling twice at work due to an inability to move her right leg. The patient confirms regular use of prednisone, as previously not adhered to. Her current weight and height are listed as 135 lbs and 5'4 , respectively. The patient describes her pain level as extremely severe, which is temporarily alleviated by hydrocodone, although alternative treatment options are being pursued due to addiction concerns. Other medications include duloxetine and a previous use of gabapentin, now being substituted. Planned interventions include a course of IVIG for neurological symptoms and an increase in prednisone dosage. [facility] Medical History (Updated 02/07/25 @ 09:38 by Willi Sher MD) Guillain-Siren syndrome CIDP (chronic inflammatory demyelinating polyneuropathy) Paresthesia of skin Migraine without aura Review of Systems Const Details: - Neurologic: Reports numbness in lower extremities, difficulty moving right leg, falls - General: Denies cold or flu symptoms Physical Exam Neuro Other: Mental Status: Alert and oriented to person, place, and time. Normal attention. Normal spontaneous speech, fluency, and comprehension. No obvious issues with mood and memory. Affect is appropriate. Cranial Nerves: CN II: Visual anaya full to confrontation, visual acuity intact. CN III, IV, : Pupils equal, round, reactive to light and accommodation. Extraocular movements are normal. CN V: Facial sensation is normal. CN VII: Facial movements symmetrical. CN VIII: Hearing intact to bedside conversation is normal. CN IX, X: Palate elevates symmetrically. CN XI: Shoulder shrug and head turn symmetrical. CN XII: Tongue midline without atrophy or fasciculations. She is walking in his slow paced wide-based gait. Deep tendon reflexes are absent. Extrapyramidal: Full facial expressions and blinking. No rigidity. Movements are appropriate with no tremor or abnormality. Speech: Normal; no dysarthria or tremor. Assessment & Plan Assessment & Plan (1) CIDP (chronic inflammatory demyelinating polyneuropathy): Comment: NCV/EMG LE (in office) Mild sensory and motor peripheral neuropathy with features of demyelination and axonal loss. Bilateral mid and lower lumbar radiculopathy. Code(s): G61.81 - Chronic inflammatory demyelinating polyneuritis Category: Medical (2) Migraine without aura: Code(s): G43.009 - Migraine without aura, not intractable, without status migrainosus Category: Medical Qualifiers: Intractability: not intractable Status migrainosus presence: without status migrainosus Qualified Code(s): G43.009 - Migraine without aura, not intractable, without status migrainosus Plan: I discussed with the patient the current issues of numbness and falls. We reviewed increasing her prednisone dosage and initiating a course of IVIG, previously effective, to manage the neuropathic symptoms. We also discussed the cessation of gabapentin, transitioning to another therapeutic option. The potential for addiction with continued hydrocodone use was highlighted, n ecessitating alternative management strategies. Patient understanding of the proposed interventions and consent for the changes and treatments are documented. Follow-up arrangements and compliance with the new medication regimen are crucial. Plan Impression: a: CIDP b: Neuropathic pain Rec: a: Prednisone 10mg daily b: IV Ig 0.4g per day for 5 days c: Duloxetine 30 mg bid d: DC gabapentin e: Start pregabilin 100mg bid Orders: Referrals Infusion Center Notification G61.81 - Chronic inflammatory demyelinating polyneuritis Medications: New prednisone 10 mg PO DAILY 90 tabs 0RF pregabalin 100 mg PO BID 180 caps 0RF Discontinued gabapentin Discontinued Reason: Doctor's Order 800 mg PO BID 180 tabs 0RF Coding Level of Care Code Est Pt Level 5 (90464) Diagnoses CIDP (chronic inflammatory demyelinating polyneuropathy) G61.81 Migraine without aura and without status migrainosus, not intractable G43.009 Intractability: not intractable Status migrainosus presence: without status migrainosus
== END 2025-04-04 09:48 | disposition home or self-care (01) ==
LOC: HO.HSM 07:45
PROVIDERS: PCP Family Medicine; Visit Provider Psychiatry & Neurology Neurology
DX: G61.81 Chronic inflammatory demyelinating polyneuritis (principal); G43.009 Migraine without aura, not intractable, without status migrainosus
CPT/HCPCS: 99214

== ENCOUNTER → 2025-04-04 07:44 | Outpatient (BNVA) | payer OTHER, SELFPAY | PROVIDERS: PCP Family Medicine; Visit Provider Psychiatry & Neurology Neurology | DX: G61.81 Chronic inflammatory demyelinating polyneuritis (principal); G43.009 Migraine without aura, not intractable, without status migrainosus; R20.0 Anesthesia of skin; Z86.69 Personal history of other diseases of the nervous system and sense organs | CPT/HCPCS: 99212 ==

== ENCOUNTER 2025-05-01 12:44 | Outpatient (REF) | payer OTHER, SELFPAY ==
--- NOTE | 2025-05-01 13:07 | EMG_ITS ---
Chief complaint: Pain lower extremities Reason for referral: CIDP Referred by:?Dr Sher Procedure done: Bilateral lower extremities NCS/EMG Description: Bilateral tibial and peroneal motor studies were obtained with F responses. Bilateral superficial peroneal and sural sensory studies were performed tibial H reflexes were obtained and EMG needle examination was performed. Motor studies revealed normal distal latencies except slightly prolonged of left tibial stimulation with [id number] reduced amplitudes of peroneal responses. Tibial amplitude was were normal. Motor conduction velocities were with a normal range. In sensory studies, amplitudes were mildly diminished with mostly normal conduction velocities except right superficial peroneal that was slightly reduced. F responses were falling with a normal range while H reflexes were absent. Otherwise no significant abnormality was noted. Impression: Mild sensory and motor somewhat patchy peripheral neuropathy. MTDD
--- OUTSIDE RECORDS SUMMARY | 2025-05-01 13:53 | XMS_ITS | Clinical Summary ---
Author Organization [address] Address [address] [place] [phone] Phone Care Team Providers Care Chemistry Technical Officer Name Role Phone Yudi Rosa MD Primary [...] into the lungs every 6 hours as needed.Inha le 2 Puffs into the lungs every 6 hours as needed. 1 each 09/20/19 25 Active DULoxetine (CYMBALTA) [address] capsuleIndicatio ns:Chronic pain syndrome,History of Guillain-Verona syndrome Take 1 capsule (30 mg total) by mouth 2 (two) times a day. Do not crush or chew. 180 each 09/20/19 25 Active EPINEPHrine (EpiPen 2-Pancho) 0.3 mg/0.3 mL injectionIndicat ions:Multiple drug allergies Inject 0.3 mL (0.3 mg total) into the thigh 1 (one) time for 1 dose. 1 each 09/20/19 25 Active fluticasone furoate (Arnuity Ellipta) 100 mcg/actuation blister with device inhalerIndicatio ns:Mild intermittent asthma without complication Inhale 1 puff by mouth 1 (one) time each day. Inhale 1 Puff into the lungs daily. 1 each 09/20/19 25 Active propranoloL (INDERAL) 10 mg tabletIndication s:Generalized anxiety disorder Take 1 tablet (10 mg total) by mouth 2 (two) times a day if needed (anxiety). TAKE 1 TABLET BY MOUTH 2 TIMES DAILY NEEDED (ANXIETY) FOR UP TO 360 DAYS. 180 tablet 1 09/20/19 25 Active SUMAtriptan (IMITREX) 50 mg tabletIndication s:Migraine without aura and without status migrainosus, not intractable Take 1 tablet (50 mg total) by mouth 1 (one) time if needed for migraine. May repeat dose once in 2 hours if no relief. Do not exceed 2 doses in 24 hours. 10 tablet 1 09/20/19 25 Active predniSONE (DELTASONE) 20 mg tabletIndication s:History of Guillain-Verona syndrome Take 1 tablet (20 mg total) by mouth 1 (one) time each day. 09/20/19 25 Active escitalopram (LEXAPRO) 20 mg tabletIndication s:Generalized anxiety disorder,Mild depression Take 1 tablet (20 mg total) by mouth 1 (one) time each day. 90 each 1 09/20/19 25 Active montelukast (SINGULAIR) 10 mg tabletIndication s:Allergic rhinitis, unspecified seasonality, unspecified trigger Take 1 tablet (10 mg total) by mouth at bedtime. 90 each 1 09/20/19 25 Active diphenhydrAMINE (BENADRYL) 50 mg tabletIndication s:Allergic rhinitis, unspecified seasonality, unspecified trigger Take 1 tablet (50 mg total) by mouth at bedtime as needed for itching. 30 tablet 09/20/19 25 Active magnesium oxide 250 mg magnesium tablet TAKE 1 TABLET BY MOUTH EVERY DAY 90 tablet 1 10/07/19 25 Active pregabalin (LYRICA) 100 mg capsule Take 1 capsule (100 mg total) by mouth 2 (two) times a day. Max Daily Amount: 200 mg Active gabapentin (NEURONTIN) 800 mg tabletIndication s:History of Guillain-Verona syndrome Take 1 tablet (800 mg total) by mouth 2 (two) times a day. 09/20/19 25 025 Discontinued omeprazole (PriLOSEC) [address] capsule Take 1 capsule (20 mg total) by mouth 1 (one) time each day. Do not crush or chew. 90 each 01/31/20 25 025 Active Problems Problem Noted Date Diagnosed Date CIDP (chronic inflammatory d emyelinating polyneuropathy) ([facility] V24, [facility] V28) 04/25/2025 Mild depression 2024 Assessment & Plan (2024 [...] (one) time for 1 dose. History of Guillain-Verona syndrome 2024 Assessment & Plan (2024 9:50 [...] Encounters Date Type Department Care Team Description 04/25/2025 10:30 AM EDT Office Visit Adult Medicine [address] [phone] Amparo Adhikari PA Vitamin B12 deficiency (Primary Dx); History of Guillain-Verona syndrome; CIDP (chronic inflammatory demyelinating polyneuropathy) ([facility] V24, [facility] V28) 01/30/2025 2:54 PM EDT Anesthesia Event [facility] [address] [place] [phone] Olivia Major MD 01/30/2025 12:54 PM EDT - 01/30/2025 11:59 PM EDT Hospital Encounter [facility] [address] [place] [phone] Roberto Mclain MD Freeman, Katharine O, MD Hayes, Brett L, OBI Dysphagia Discharge Disposition: Home or Self Care from Last 3 Months Immunizations Immunization Administration Dates Next Due Influenza Quadrivalent, 0.5m [...] OPENING OF ESOPHAGUS BARIATRIC SURGERY 12/2021 PROCEDURE: NJ LAPS GSTRC RSTRICTIV PX LONGITUDINAL GASTRECTOMY OTHER SURGICAL HISTORY 03/2022 PROCEDURE: NJ INJECTION EPIDURAL BLOOD/CLOT PATCH; COMMENT: spinal Medical [...] care for your loved ones. For example, child support agent or elderly care for an older adult? [...] Date Recorded What is your living situation? Unrecognized valu e 09/19/2024 Interpersonal Safety Answer Date Record ed Physical Abuse Unrecognized value 01/30/2025 Verbal Abuse Unrecognized value 01/30/2025 Comments No Sex and Gender Information Value Date Recorded Sex Assigned at Female 10/19/2024 3:06 PM EDT Legal Sex Female 11:41 AM EDT Gender Identity Female 10/19/2024 3:06 PM EDT Sexual Orientation Lesbian or Davis 10/19/2024 3: 06 PM EDT Obstetrics History Last Filed Vital Signs Vital Sign Reading Time Taken Comments Blood Pressure 95/57 04/25/2025 9:50 AM EDT Pulse 87 04/25/2025 9:50 AM EDT Temperature 35.9 C (96.6 F) 04/25/2025 9:50 AM EDT Respiratory Rate 14 04/25/2025 9:50 AM EDT Oxygen Saturation 97% 04/25/2025 9:50 AM EDT Inhaled Oxygen Concentration - - Weight 68.3 kg (150 lb 8 oz) 04/25/2025 9:50 AM EDT Height 162.6 cm (5' 4 ) 04/25/2025 9:50 AM EDT Body Mass Index 25.83 04/25/2025 9:50 AM EDT Plan of Treatment Upcoming Encounters Date Type Department Care Team (Late st Contact Info) Description 08/29/2025 11:00 AM EST Office Visit Adult Medicine [facility] [address] [place] [phone] Yudi Rosa MD [address] [place] [address] Health Maintenance Due Date Last Done Comments Pneumococcal Vaccine: Pediatrics (0 to 5 Years) and At-Risk Patients (6 to 49 Years) (1 of 2 - PCV) 2010 Cervical Cancer Screening: Pap Smear 2012 HPV Vaccines (1 - 3-dose SCD M series) 2018 HIV Screening 05/11/2024 Social Influencers of Health Screening 09/19/2025 09/19/2024 Cholesterol Screening (Lipid Panel) 03/30/2029 03/30/2024, 03/30/2024 DTaP,Tdap,and Td Vaccines (3 - Td or Tdap) 2034 2024, 04/16/2005 RSV Immunization Adult Patients (1 - 1-dose 75+ series) 2066 Influenza Vaccine Discontinued 05/30/2019, 07/01/2006 Depression Screening Completed 09/19/2024, 03/15/2024 Hepatitis C Screening Completed 04/25/2025 COVID-19 Vaccine Discontinued HIB Vaccines Aged Out [...] Procedure Name Priority Date/Time Associated Diagnosis Comments HEPATITIS C ANTIBODY Routine 04/25/2025 10:26 AM EDT Need for hepatitis C screening test VITAMIN B12 Routine 04/25/2025 10:26 AM EDT Vitamin B12 deficiency EGD Routine 01/30/2025 3:07 PM EDT Dysphagia LIPID PANEL Routine 03/30/2024 HM DEPRESSION SCREENING Routine 03/15/2024 from Last 3 Months or Most Recently Relevant to Health Maintenance Results * Hepatitis C antibody (04/25/2025 10:26 AM EDT) Pathologist [facility] Hepatitis C Antibody Negative Negative LAB CHEMISTRY METHOD 04/25/2025 5:16 PM EDT [facility] Blood Venous blood specimen / Unknown Venipuncture / Unknown 04/25/2025 10:26 AM EDT 04/25/2025 10:26 AM EDT Yudi Rosa MD LAB BLOOD ORDERA BLES Final Result [facility] [address] [place] [address], * (ABNORMAL) Vitamin B12 (04/25/2025 10:26 AM EDT) Vitamin B-12 233(L) 250 - 900 pcg/mL LAB CHEMISTRY METHOD 04/25/2025 4:38 PM EDT [facility] Blood Venous blood specimen / Unknown Venipuncture / Unknown 04/25/2025 10:26 AM EDT 04/25/2025 10:26 AM EDT Amparo GIPSON LAB BLOOD ORDERABLES Final Re sult [facility]) [facility] [address] [place] [address], * EGD Dilation; Anesthesia - MAC; [facility] (01/30/2025 3:07 PM EDT) Anatomical Region [...] persist. Narrative 01/30/2025 3:[address] [facility] Patient Name: Megan Norris Procedure [...] verified by the physician, the nurse, the labor relations specialist and the network operations technician in the pre-procedure area in the [...] the esophagus. Procedure Code(s): --- Professional --- 80952, Esophagogastroduodenoscopy, flexible, transoral; with insertion of guide wire followed by passage of dilator(s) through esophagus over guide wire Diagnosis Code(s): --- Professional --- Z98.84, Bariatric surgery status R13.10, Dysphagia, unspecified K21.9, Gastro-esophageal reflux disease without esophagitis CPT copyright 2020 [employer]. All rights reserved. The codes documented in this report are preliminary and upon linen clerk review may be revised to meet current compliance requirements. Halcass Mclain MD 01/30/2025 3:10:18 PM This report has been signed electronically.Roberto Mclain MD Number of Addenda: 0 Note Initiated On: 01/30/2025 2:56 PM Scope In: Scope Out: Endoscopy Department at [facility] - [address] [place] [phone] Procedure Note Roberto Mclain MD - 01/30/2025 [facility] Patient Name: Megan Norris Procedure [...] the physician, the nurse, theanesthetist and the network operations technician in the pre-procedure area in the [...] the esophagus. Procedure Code(s): --- Professional --- 78737, Esophagogastroduodenoscopy, flexible, transoral; with insertion of guide wire followed by passage of dilator(s) through esophagus over guidewire Diagnosis Code(s): --- Professional --- Z98.84, Bariatric surgery status R13.10, Dysphagia, unspecified K21.9, Gastro-esophageal reflux disease without esophagitis CPT copyright 2021 [employer]. All rights reserved. The codes documented in this report are preliminary and upon linen clerk reviewmay be revised to meet current compliance requirements. Roberto Mclain MD 01/30/2025 3:10:18 PM This report has been signed electronically.Roberto Mclain MD Number of Addenda: 0 Note Initiated On: 01/30/2025 2:56 PM Scope In: Scope Out: Endoscopy Department at [facility] - [address] [place] [phone] IMPRESSION: - Normal examined duodenum. - A [...] Most Recently Relevant to Health Maintenance Insurance [facility] [employer] Care Teams Chemistry Technical Officer Relationship Specialty Start Date End Date Yudi Rosa MD [address] [place] [phone] PCP - General Internal Medicine 06/06/24
--- OUTSIDE RECORDS SUMMARY | 2025-05-01 13:54 | XMS_ITS | Clinical Summary ---
Author Organization [facility] Address [address] [place] [address] Care Team Providers Care Copywriter Name Role Phone Unavailable Primary Care Provider [...] Cervical Cancer Screening 2012 Pap Smear 2012 Imm-HPV (1 - 3-dose SCDM series) 2018 Alcohol and Drug Screen 08/02/2024 Depression Annual Screen 08/02/2024 [id number] ( season) 2025 Imm-Influenza (#1) 2025 05/30/2019, 07/01/2006 Dental BW [...] root Caries of enamel (incipient) Defective dental spiritism Caries PROPHYLAXIS - ADULT Routine 05/09/2024 2 :20 PM EDT Retained tooth root Caries Caries of enamel (incipient) Defective dental spiritism COMP ORAL EVALUATION - NEW/ESTABLISHED PATIENT Routine 05/09/2024 2:20 PM EDT Retained tooth root Caries Caries of enamel (incipient) Defective dental spiritism from Last 3 Months or Most Recently Relevant to Health Maintenance Insurance [place]
== END 2025-05-01 12:45 | disposition home or self-care (01) ==
LOC: HO.NEURO 12:44
PROVIDERS: Visit Provider Psychiatry & Neurology Neurology
DX: G61.81 Chronic inflammatory demyelinating polyneuritis (principal)
CPT/HCPCS: 95886; 95911

== ENCOUNTER → 2025-05-01 13:07 | Outpatient (BNV) | payer OTHER, SELFPAY | PROVIDERS: Visit Provider Psychiatry & Neurology Neurology | DX: G61.81 Chronic inflammatory demyelinating polyneuritis (principal) | CPT/HCPCS: 95886; 95911 ==

== ENCOUNTER 2025-05-09 08:32 | Outpatient (AMB) | payer OTHER, SELFPAY ==
--- NOTE | 2025-05-09 08:44 | A.OFFVIS_ITS ---
Intake Visit Reasons: 3M CIDP Allergies ceftriaxone (From Rocephin) Allergy (Verified 02/06/25 11:51) Unknown iodine Allergy (Verified 02/06/25 11:51) Unknown Medication List - Last Reconciled 05/09/25 by Willi Sher MD albuterol sulfate 90 mcg/actuation (ProAir RespiClick) 2 inhalations inhalation Q6H PRN duloxetine 30 mg PO BID ketorolac 10 mg PO Q6H PRN omeprazole 20 mg PO DAILY prednisone 2.5 mg PO DAILY prednisone 10 mg PO DAILY pregabalin 100 mg PO BID sumatriptan succinate mg PO HPI Comments Details: 34 years old woman with chronic inflammatory demyelinating polyneuropathy, and migraine without aura type of headaches. 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 Previously she has been treated with IVIG. She is presenting with neuropathic pain management and medication review. Her history includes a diagnosis of neuropathy, which was first made in [place] where she also received a lumbar puncture. Over the last two years, her neuropathy has shown mild abnormalities on testing but gradual improvement overall. The patient had been prescribed prednisone at the onset, but she has stopped taking it on her own. Her condition does not currently necessitate assistive devices, indicating stability. Currently, she experiences pain, particularly at night, causing her to wake up intermittently. She has been prescribed medications such as duloxetine and pregabalin to manage her symptoms, although she was unsure of the exact pregabalin dosage. During this visit, it was determined that her condition remains manageable without prednisone, and she should focus on physical activity to promote nerve stimulation. [facility] Medical History (Updated 05/09/25 @ 08:47 by Willi Sher MD) Guillain-Fallentimber syndrome CIDP (chronic inflammatory demyelinating polyneuropathy) Paresthesia of skin Migraine without aura Review of Systems Const Details: - Neurological: Reports pain and awakening at night due to neuropathic symptoms. - Musculoskeletal: Denies need for assistive devices like wheelchairs or walkers. - Medications: Reports taking duloxetine at bedtime, unsure of pregabalin dosage. Physical Exam Neuro Other: Mental Status: Alert and oriented to person, place, and time. Normal attention. Normal spontaneous speech, fluency, and comprehension. No obvious issues with mood and memory. Affect is appropriate. Cranial Nerves: CN II: Visual anaya full to confrontation, visual acuity intact. CN III, IV, : Pupils equal, round, reactive to light and accommodation. Extraocular movements are normal. CN V: Facial sensation is normal. CN VII: Facial movements symmetrical. CN VIII: Hearing intact to bedside conversation is normal. CN IX, X: Palate elevates symmetrically. CN XI: Shoulder shrug and head turn symmetrical. CN XII: Tongue midline without atrophy or fasciculations. Motor: Bulk and tone normal in all extremities. No significant muscle weakness in arms and legs. No drift. Reflexes: Deep tendon reflexes 2+ and symmetric. Plantar response down-going bilaterally. Coordination: Gcxpje-[id number] and [id number]-iqkf testing normal. No dysmetria. Gait and Station: No obvious gait abnormality. No ataxia or instability. Sensory: Intact to light touch, pinprick, and vibration. Romberg is negative. Extrapyramidal: Full facial expressions and blinking. No rigidity. Movements are appropriate with no tremor or abnormality. Speech: Normal; no dysarthria or tremor. Assessment & Plan Assessment & Plan (1) Migraine without aura: Code(s): G43.009 - Migraine without aura, not intractable, without status migrainosus Category: Medical Qualifiers: Status migrainosus presence: without status migrainosus Intractability: not intractable Qualified Code(s): G43.009 - Migraine without aura, not intractable, without status migrainosus (2) CIDP (chronic inflammatory demyelinating polyneuropathy): Comment: EMG/NCS LEs at [facility] [place] May 2025: Mild SM axonal patchy PN NCV/EMG LE (in office) in Jun 2024: Mild sensory and motor peripheral neuropathy with features of demyelination and axonal loss. Bilateral mid and lower lumbar radiculopathy. Code(s): G61.81 - Chronic inflammatory demyelinating polyneuritis Category: Medical (3) Gait disorder: Code(s): R26.9 - Unspecified abnormalities of gait and mobility Category: Medical Plan Impression: a: CIDP. Recent EMG/NCS revealed improvement from the previous study. b: Neuropathic pain Rec: a: DC pregabilin b: Increase duloxetine to 30mg bid c: Regular exercise regimen During the consultation, I explained to the patient that her neuropathy shows improvement and does not currently warrant the use of prednisone or assistive devices. We discussed the importance of engaging in regular physical activity, suggesting options such as joining a gym or daily walks to aid nerve stimulation and recovery. Additionally, to enhance pain management effectively, the recommendation was made to cease using pregabalin and to increase the dosage of duloxetine to twice a day, discussing that having a single prescriber for her medications is ideal to avoid overlaps or confusion. We addressed the uncertainty of Lumbar puncture without previous information but iterated its potential future utility if her condition deteriorates. I arranged for a follow- up in three months to reassess pain control and neuropathic progression. Medications: Refilled duloxetine 30 mg PO BID 180 caps 0RF Discontinued pregabalin Discontinued Reason: Doctor's Order 100 mg PO BID 180 caps 0RF Coding Level of Care Code Est Pt Level 4 (16925) Diagnoses Migraine without aura and without status migrainosus, not intractable G43.009 Status migrainosus presence: without status migrainosus Intractability: not intractable CIDP (chronic inflammatory demyelinating polyneuropathy) G61.81 Gait disorder R26.9
== END 2025-05-09 09:01 | disposition home or self-care (01) ==
LOC: HO.HSM 08:33
PROVIDERS: PCP Family Medicine; Visit Provider Psychiatry & Neurology Neurology
DX: G43.009 Migraine without aura, not intractable, without status migrainosus (principal); G61.81 Chronic inflammatory demyelinating polyneuritis; R26.9 Unspecified abnormalities of gait and mobility
CPT/HCPCS: 99214

== ENCOUNTER → 2025-05-09 08:32 | Outpatient (BNVA) | payer OTHER, SELFPAY | PROVIDERS: PCP Family Medicine; Visit Provider Psychiatry & Neurology Neurology | DX: G43.009 Migraine without aura, not intractable, without status migrainosus (principal); G61.81 Chronic inflammatory demyelinating polyneuritis; R26.9 Unspecified abnormalities of gait and mobility | CPT/HCPCS: 99212 ==

== ENCOUNTER 2025-07-31 07:47 | Outpatient (REF) | payer OTHER, SELFPAY ==
--- NOTE | 2025-07-31 07:52 | EMG_ITS ---
Chief complaint: Right leg pain Referred by: Rosa M Sher MD Procedure done: NCS with limited EMG of right leg Right peroneal and tibial motor studies were performed with F responses and tibial H-reflex. Right superficial peroneal, sural, and median and lateral mixed plantars sensory studies were performed. Needle examination was limited as patient did not tolerate this study well. Findings: Peroneal study revealed moderate slowing of conduction velocity across fibular head. Tibial amplitudes were significantly diminished. Tibial H-reflex was absent. Needle examination was limited. Impression: 1. 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 2. Significantly reduced right tibial motor amplitude with absent tibial H- reflex. This finding could be part of neuropathy though radiculopathy, without full needle examination, could not be ruled out. [place] [id number] [facility]
--- OUTSIDE RECORDS SUMMARY | 2025-07-31 09:11 | XMS_ITS | Clinical Summary ---
Author Organization [address] Address [address] [place] [phone] Phone Care Team Providers Care Guest Service Team Leader Name Role Phone Yudi Rosa MD Primary [...] (ProAir RespiClick) 90 mcg/actuation aerosol powdr breath activatedIndicatio ns:Mild intermittent asthma without complication Inhale 2 puffs by mouth every 6 (six) hours if needed (wheezing). Inhale 2 Puffs into the lungs every 6 hours as needed.Inhale 2 Puffs into the lungs every 6 hours as needed. 1 each 1 5 Active EPINEPHrine (EpiPen 2-Pancho) 0.3 mg/0.3 mL injectionIndicatio ns:Multiple drug allergies Inject 0.3 mL (0.3 mg total) into the thigh 1 (one) time for 1 dose. 1 each 5 Active SUMAtriptan (IMITREX) 50 mg tabletIndications: Migraine without aura and without status migrainosus, not intractable Take 1 tablet (50 mg total) by mouth 1 (one) time if needed for migraine. May repeat dose once in 2 hours if no relief. Do not exceed 2 doses in 24 hours. 10 tablet 1 5 Active DULoxetine (CYMBALTA) [address] capsuleIndications :History of Guillain-Dousman syndrome,Chronic pain syndrome Take 1 capsule (30 mg total) by mouth 2 (two) times a day. Do not crush or chew. 180 each 1 5 11/27/19 26 Active escitalopram (LEXAPRO) 20 mg tabletIndications: Generalized anxiety disorder,Mild depression Take 1 tablet (20 mg total) by mouth 1 (one) time each day. 90 each 1 5 11/27/19 26 Active propranoloL (INDERAL) 10 mg tabletIndications: Generalized anxiety disorder Take 1 tablet (10 mg total) by mouth 2 (two) times a day if needed (anxiety). TAKE 1 TABLET BY MOUTH 2 TIMES DAILY NEEDED (ANXIETY) FOR UP TO 360 DAYS. 180 tablet 1 5 Active montelukast (SINGULAIR) 10 mg tabletIndications: Allergic rhinitis, unspecified seasonality, unspecified trigger Take 1 tablet (10 mg total) by mouth at bedtime. 90 each 1 5 11/27/19 26 Active fluticasone furoate (Arnuity Ellipta) 100 mcg/actuation blister with device inhalerIndications :Mild intermittent asthma without complication Inhale 1 puff by mouth 1 (one) time each day. Inhale 1 Puff into the lungs daily. 1 each 5 Active magnesium oxide 250 mg magnesium tabletIndications: Hypomagnesemia Take 1 tablet (250 mg total) by mouth 1 (one) time each day. 90 tablet 1 5 Active diphenhydrAMINE (BENADRYL) 50 mg tabletIndications: Allergic rhinitis, unspecified seasonality, unspecified trigger Take 1 tablet (50 mg total) by mouth at bedtime as needed for itching. 30 tablet 1 5 08/28/19 26 Active gabapentin (Neurontin) 800 mg tabletIndications: History of Guillain-Dousman syndrome,CIDP (chronic inflammatory demyelinating polyneuropathy) (CMS/HCC V24, CMS/HCC V28),Chronic pain syndrome Take 1 tablet (800 mg total) by mouth 3 (three) times a day. 270 each 1 5 11/27/19 26 Active ketorolac (TORADOL) 10 mg tabletIndications: Migraine without aura and without status migrainosus, not intractable Take 1 tablet (10 mg total) by mouth 1 (one) time each day if needed for moderate pain (migraines). Active Hospital, Clinic, or Other Facility Administered Medication Ordered Dose Route Frequency Start Date End Date Status cyanocobalamin (VITAMIN B-12) injection 1,000 mcgIndications:Vitam in B12 deficiency 1000 mcg IM See admin instructions 07/18/2025 Active Active Problems Problem Noted Date Diagnosed Date Gastroesophageal reflux disease without esophagi tis 05/30/2025 Overweight (BMI 25.0-29.9) 05/30/2025 CIDP (chronic inflammatory demyelinating polyneu ropathy) 04/25/2025 Assessment & Plan (05/30/2025 2:09 PM EDT): As above Orders: Ambulatory referral to Neurology; Future gabapentin (Neurontin) 800 mg tablet; Take 1 tablet (800 mg total) by mouth 3 (three) times a day. Mild depression 2024 Assessment & Plan (05/30/2025 2:09 PM EDT): Stable. Continue Lexapro Orders: escitalopram (LEXAPRO) 20 mg tablet; Take 1 tablet (20 mg total) by mouth 1 (one) time each day. Assessment & Plan (2024 9:50 AM EST): [...] (one) time for 1 dose. History of Guillain-Dousman syndrome 2024 Assessment & Plan (05/30/2025 2:09 PM EDT): See HPI She is referred to [facility] neurology Continue duloxetine 30mg BID and gabapentin 800mg TID She will continue with IVIG therapy every [address] Sher until she establishes care with a new neurologist Orders: Ambulatory referral to Neurology; Future DULoxetine (CYMBALTA) [address] capsule; Take 1 capsule (30 mg total) by mouth 2 (two) times a day. Do not crush or chew. gabapentin (Neurontin) 800 mg tablet; Take 1 tablet (800 mg total) by mouth 3 (three) times a day. Assessment & Plan (2024 9:50 AM EST): Continue duloxetine and gabapentin 800 mg twice daily. Also prescribed prednisone 20 mg daily by her neurologist-Dr. Sher Orders: DULoxetine (CYMBALTA) [address] capsule; Take 1 capsule (30 mg total) by mouth 2 (two) times a day. Do not crush or chew. Hypomagnesemia 2024 Assessment & Plan (05/30/2025 2:09 PM EDT): Continue magnesium daily Orders: magnesium oxide 250 mg magnesium tablet; Take 1 tablet (250 mg total) by mouth 1 (one) time each day. Assessment & Plan (2024 9:50 AM EST): Continue magnesium 300 mg daily B12 deficiency 2024 Assessment & Plan (05/30/2025 2:09 PM EDT): Received first b12 injection today Will complete b12 injections weekly for 4 weeks then monthly indefinitely Orders: Vitamin B12; Future cyanocobalamin (VITAMIN B-12) injection 1,000 mcg cyanocobalamin (VITAMIN B-12) injection 1,000 mcg Anti-parietal antibody; Future CBC and differential; Future Intrinsic factor blocking antibody; Future Assessment & Plan (2024 9:50 AM EST): Continue daily multivitamin. Will update B12 level Orders: Vitamin B12; Future Cholelithiases 03/30/2024 Chronic pain syndrome 03/15/2024 Assessment & Plan (05/30/2025 2:09 PM EDT): Continue duloxetine and gabapentin Orders: DULoxetine (CYMBALTA) [address] capsule; Take 1 capsule (30 mg total) by mouth 2 (two) times a day. Do not crush or chew. gabapentin (Neurontin) 800 mg tablet; Take 1 tablet (800 mg total) by mouth 3 (three) times a day. Comprehensive metabolic panel; Future Assessment & Plan (2024 9:50 AM EST): [...] migrainosus, not intractable 03/15/2024 Assessment & Plan (05/30/2025 2:09 PM EDT): Continue Toradol 10 as needed and sumatriptan 50 mg as needed mg Orders: Ambulatory referral to Neurology; Future Assessment & Plan (2024 9:50 AM EST): Continue sumatriptan and Toradol as needed Orders: SUMAtriptan (IMITREX) 50 mg tablet; Take 1 tablet (50 mg total) by mouth 1 (one) time if needed for migraine. May repeat dose once in 2 hours if no relief. Do not exceed 2 doses in 24 hours. Mild intermittent asthma without complication Assessment & Plan (05/30/2025 2:09 PM EDT): Continue arnuity and albuterol as needed Orders: fluticasone furoate (Arnuity Ellipta) 100 mcg/actuation blister with device inhaler; Inhale 1 puff by mouth 1 (one) time each day. Inhale 1 Puff into the lungs daily. Assessment & Plan (2024 9:50 AM EST): [...] lungs daily. Impaired gait and mobility 03/15/2024 Assessment & Plan (05/30/2025 2:09 PM EDT): [facility]/.scooter Fatty liver disease, nonalcoholic 03/15/2024 Esophageal stricture 03/15/2024 Assessment & Plan (2024 9:50 AM EST): See HPI. Referred to GI Orders: Ambulatory referral to Gastroenterology; Future Generalized anxiety disorder 07/10/2022 Assessment & Plan (05/30/2025 2:09 PM EDT): Well controlled Continue current meds Orders: escitalopram (LEXAPRO) 20 mg tablet; Take 1 tablet (20 mg total) by mouth 1 (one) time each day. propranoloL (INDERAL) 10 mg tablet; Take 1 tablet (10 mg total) by mouth 2 (two) times a day if needed (anxiety). TAKE 1 TABLET BY MOUTH 2 TIMES DAILY NEEDED (ANXIETY) FOR UP TO 360 DAYS. Assessment & Plan (2024 9:50 AM EST): [...] day. Allergic rhinitis 12/22/2018 Assessment & Plan (05/30/2025 2:09 PM EDT): Continue montelukast and Benadryl as needed Orders: montelukast (SINGULAIR) 10 mg tablet; Take 1 tablet (10 mg total) by mouth at bedtime. diphenhydrAMINE (BENADRYL) 50 mg tablet; Take 1 tablet (50 mg total) by mouth at bedtime as needed for itching. Assessment & Plan (2024 9:50 AM EST): Continue current meds Orders: montelukast (SINGULAIR) 10 mg tablet; Take 1 tablet (10 mg total) by mouth at bedtime. diphenhydrAMINE (BENADRYL) 50 mg tablet; Take 1 tablet (50 mg total) by mouth at bedtime as needed for itching. Attention deficit hyperactivity disorder (ADHD) 07/01/2006 Encounters Date Type Department Care Team Description 07/25/2025 8:30 AM EST Clinical Support Adult [address] [phone] Vitamin B12 deficiency (Primary Dx) 07/18/2025 1:45 PM EST Clinical Support Adult [address] [phone] Vitamin B12 deficiency (Primary Dx) 07/17/2025 Telephone Adult Medicine [address] [phone] Andreia Cooper MA 07/11/2025 Telephone Adult Medicine [address] [phone] Yudi Rosa MD 06/21/2025 12:30 PM EST Treatment [facility] [address] [phone] Megha Pereira PT Guillain Barraza syndrome (CMS/HCC V24) (Primary Dx); CIDP (chronic inflammatory demyelinating polyneuropathy) (CMS/HCC V24, CMS/HCC V28) 05/30/2025 1:00 PM EDT Office Visit Adult Medicine [address] [phone] Yudi Rosa MD B12 deficiency (Primary Dx); Generalized anxiety disorder; History of Guillain-Dousman syndrome; CIDP (chronic inflammatory demyelinating polyneuropathy) (CMS/HCC V24, CMS/HCC V28); Mild depression; Migraine without aura and without status migrainosus, not intractable; Mild intermittent asthma without complication; Chronic pain syndrome; Allergic rhinitis, unspecified seasonality, unspecified trigger; Hypomagnesemia; Need for vaccination against Streptococcus pneumoniae; Impaired gait and mobility 05/08/2025 Telephone Adult Medicine [address] [phone] Yudi Rosa MD 05/04/2025 Results Follow-Up Adult [address] [phone] Roslyn Alvares MA from Last 3 Months Immunizations Immunization Administration Dates Next Due Influenza Quadrivalent, 0.5m l, preservative free (Fluarix; FluLaval; Fluzone) ages 6mo and older (Afluria) 3yo and older 05/30/2019 Influenza trivalent, 0.5mL, preservative free (Fluarix; FluLaval; Fluzone) ages 6mo and older (Afluria) 3 years and older 07/01/2006 Pneumococcal conjugate 20 va lent (Prevnar 20, PCV 20) 2mo and older 05/30/2025 Td Tetanus diptheria (Tdvax) 7yo and older 04/16 Tdap Tetanus diptheria acell ular pertussis (Boostrix; Adacel) 7yo and older 2024 Surgical History Surgery Date Site/Laterality Comments OTHER SURGICAL HISTORY 2021 PROCEDURE: SURGICAL OPENING OF ESOPHAGUS BARIATRIC SURGERY 12/2021 PROCEDURE: MI LAPS GSTRC RSTRICTIV PX LONGITUDINAL GASTRECTOMY OTHER SURGICAL HISTORY 03/2022 PROCEDURE: MI INJECTION EPIDURAL BLOOD/CLOT PATCH; COMMENT: spinal Medical [...] for your loved ones. For example, child and family services worker or elderly care for an older adult? [...] or Davis 10/19/2024 3: 06 PM EDT Last Filed Vital Signs Vital Sign Reading Time Taken Comments Blood Pressure 115/72 05/30/2025 12:56 PM EDT Pulse 76 05/30/2025 12:56 PM EDT Temperature 36.3 C (97.3 F) 05/30/2025 12:56 PM EDT Respiratory Rate 14 05/30/2025 12:56 PM EDT Oxygen Saturation 99% 05/30/2025 12:56 PM EDT Inhaled Oxygen Concentration - - Weight 70.1 kg (154 lb 9.6 oz) 05/30/2025 12:56 PM EDT Height 162.6 cm (5' 4 ) 05/30/2025 12:56 PM EDT Body Mass Index 26.54 05/30/2025 12:56 PM EDT Plan of Treatment Upcoming Encounters Date Type Department Care Team (Late st Contact Info) Description 08/08/2025 1:30 PM EST Clinical Support [address] [phone] 08/29/2025 11:00 AM EST Office Visit [address] [phone] Yudi Rosa MD [address] [place] [address] 09/05/2025 2:00 PM EST Clinical Support [address] [phone] Health Maintenance Due Date Last Done Comments Cervical Cancer Screening: Pap Smear 2012 HPV [...] 09/19/2024, 03/15/2024 Hepatitis C Screening Completed 04/25/2025 Pneumococcal Vaccine: Pediatrics (0 to 5 Years) and At-Risk Patients (6 to 49 Years) Completed 05/30/2025 COVID-19 Vaccine Discontinued HIB Vaccines Aged Out [...] EDT Need for hepatitis C screening test LIPID PANEL Routine 03/30/2024 DEPRESSION SCREENING Routine 03/15/2024 from Last 3 Months or Most Recently Relevant to Health Maintenance Results * Hepatitis C antibody (04/25/2025 10:26 AM EDT) [facility] Hepatitis C Antibody Negative Negative LAB CHEMISTRY METHOD 04/25/2025 5:16 PM EDT [facility] Blood Venous blood specimen / Unknown Venipuncture / Unknown 04/25/2025 10:26 AM EDT 04/25/2025 10:26 AM EDT Yudi Rosa MD LAB BLOOD ORDERA BLES Final Result [facility] [address] [place] [address], * Lipid panel (03/30/2024) [facility] LDL/HDL Ratio 3 0 - 4 Triglycerides 50 0 - 150 mg/dL Cholesterol 138 0 - 200 mg/dL HDL 56 >=40 mg/dL LDL Cholesterol 72 0 - 100 mg/dL Blood Venous blood specimen / Unknown Eric Leahy MD LAB BLOOD ORDERABLES Prisca l Result * Depression Screening (03/15/2024) Pathologist [facility] Depression Screening Abstracted Historical [facility] [employer] Final Result from Last 3 Months or Most Recently Relevant to Health Maintenance Insurance [facility] Care Teams Guest Service Team Leader Relationship Specialty Start Date End Date Yudi Rosa MD [address] [place] [phone] PCP - General Internal Medicine 06/06/24
--- OUTSIDE RECORDS SUMMARY | 2025-07-31 09:11 | XMS_ITS | Encounter Summary ---
Author Organization [facility] Address [address] [place] [address] Care Team Providers Care Digital Circuit Designer Name Role Phone Yudi Rosa MD Primary Care Pr ovider Reason for Visit * Reason Onset Date Comments Fitting for DME 07/11/2025 Pt wants a scrip for electric wheelchair , Encounter Details Date Type Department Care Team (Late st Contact Info) Description 07/11/2025 Telephone Adult Medicine [address] [phone] Yudi Rosa MD [address] [place] [address] Social History Tobacco Use Types Packs/Day Years Used Date Smoking Tobacco: Never Smokeless Tobacco: Never Alcohol Use Standard Drinks/Week Comments Not Currently [...] care for your loved ones. For example, early childhood worker or elderly care for an older [...] or Davis 10/19/2024 3: 06 PM EDT documented as of this encounter Progress Notes * Doris Oh - 07/27/2025 3:43 PM EST PATIENT CALLING ON DME REQUEST * Dawnaudelia Boyd - 07/11/2025 8:34 AM EST DME REQUEST Name of Product: Electric wheelchair Specific information about product # Needed 1 Reason patient is asking for this supply? Due to flares up pt needs electric chair Have you received this supply before? If yes , when?: No Have you discussed the need for this supply with a provider at a recent visit? If yes, with who andwhen? Yes. 05/30/25 When completed: Will warehouse order picker-call when completed: (home) Who is requested? Christa from [employer] is looking for last office visit for 05/30/25 please fax it to [phone] Attention to Christa BILLIE Is this a fax request?[phone] Have you told the patient it will take 7-10 days for completion of this request? Yes documented in this encounter Plan of Treatment Upcoming Encounters Date Type Department Care Team (Late st Contact Info) Description 08/08/2025 1:30 PM EST Clinical Support Adult [address] [phone] 08/29/2025 11:00 AM EST Office Visit Adult [address] [phone] Yudi Rosa MD [address] [place] [address] 09/05/2025 2:00 PM EST Clinical Support Adult [address] [phone] documented as of this encounter Visit Diagnoses Not on filedocumented in this encounter Additional Health Concerns Assessment Noted Time PHQ-9 Depression Total Score: 7 09/19/19 25 3:03 PM EST documented as of this encounter Care Teams Digital Circuit Designer Relationship Specialty Start Date End Date Yudi Rosa MD [address] [place] [phone] PCP - General Internal Medicine 06/06/24 documented as of this encounter
== END 2025-07-31 07:48 | disposition home or self-care (01) ==
LOC: HO.NEURO 07:47
PROVIDERS: PCP Family Medicine; Visit Provider Psychiatry & Neurology Neurology
DX: G61.81 Chronic inflammatory demyelinating polyneuritis (principal)
CPT/HCPCS: 95885; 95910

== ENCOUNTER → 2025-07-31 07:52 | Outpatient (BNV) | payer OTHER, SELFPAY | PROVIDERS: PCP Family Medicine; Visit Provider Psychiatry & Neurology Neurology | DX: G57.31 Lesion of lateral popliteal nerve, right lower limb (principal); G57.41 Lesion of medial popliteal nerve, right lower limb | CPT/HCPCS: 95885; 95909 ==